=== PATIENT | female | born 1975 | race Hispanic/Latino ===

== ENCOUNTER 2018-04-06 12:50 | Emergency (ER) | payer OTHER ==
[2018-04-06 13:10] VITALS: BP 110/72; PULSE 88; TEMP 98.6; O2SAT 96
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
--- NOTE | 2018-04-06 14:12 | RAD ---
PROCEDURE: Right Hand Radiographs. HISTORY: 3rd and 4th finger injury, pain and swell to DIP COMPARISON: None. FINDINGS: BONES: Intra-articular fracture dorsal aspect base distal phalanx 3rd digit. . Additionally, there appears to be a fracture of the ulnar aspect base of the distal tuft of the distal phalanx of the 4th finger as well. . Mild surrounding soft tissue swelling JOINTS: As above SOFT TISSUES: As above OTHER FINDINGS: None. IMPRESSION: Intra-articular fracture dorsal aspect base distal phalanx 3rd digit. . Additionally, there appears to be a fracture of the ulnar aspect base of the distal tuft of the distal phalanx of the 4th finger as well. . Mild surrounding soft tissue swelling
[2018-04-06 14:20] VITALS: RESP 20
== END 2018-04-06 14:19 | disposition home or self-care (01) ==
LOC: C.ER 12:50
DX: S62.632A Displaced fracture of distal phalanx of right middle finger, initial encounter for closed fracture (principal); S62.634A Displaced fracture of distal phalanx of right ring finger, initial encounter for closed fracture; V89.2XXA Person injured in unspecified motor-vehicle accident, traffic, initial encounter